=== PATIENT | female | born 2000 | race Caucasian/White ===

== ENCOUNTER → 2024-04-28 | Outpatient (CLI) | payer BC ==
[2024-04-28 12:31] LABS: BASO # 0.01 K/mm3 (0.02-0.10); EOS # 0.05 K/mm3 (0.04-0.40); HEMATOCRIT 42.5 % (37.0-47.0); HEMOGLOBIN 13.8 g/dL (12.5-16.0); LYMPH# 2.43 K/mm3 (1.50-4.00); MEAN CELL VOLUME 87 fl (78-100); MEAN CORPUSCULAR HEMOGLOBIN 28 pg (27-31); MEAN CORPUSCULAR HGB CONC 33 g/dL (33-37); MEAN PLATELET VOLUME 10.8 fl (7.4-10.4); MONO # 0.43 K/mm3 (0.20-0.80); NEU # 2.26 K/mm3 (1.40-6.50); PLATELET COUNT 183 K/mm3 (130-400); RED BLOOD COUNT 4.89 M/mm3 (4.10-5.30); RED CELL DISTRIBUTION WIDTH 12.8 % (11.5-14.5); WHITE BLOOD COUNT 5.2 K/mm3 (4.8-10.8)
[2024-04-28 12:37] LABS: ALBUMIN 4.9 g/dL (3.5-5.0)
[2024-04-28 12:38] LABS: CALCIUM 10.1 mg/dL (8.3-10.5)
[2024-04-28 12:40] LABS: TOTAL PROTEIN 7.6 g/dL (6.4-8.3)
[2024-04-28 12:41] LABS: TOTAL BILIRUBIN 0.5 mg/dL (0.2-1.2)
[2024-04-29 09:24] LABS: ANA SCREEN with REFLEX Negative (Negative)
== END ==
LOC: LAB 12:17
PROVIDERS: Nurse Practitioner
DX: L50.8 Other urticaria (principal)